=== PATIENT | female | born 1985 | race Caucasian/White ===

== ENCOUNTER 2018-11-11 10:53 | Emergency (ER) | payer OTHER ==
[2018-11-11] MEDS ORDERED: NS 1,000 ML IV ONE (12:30)
[2018-11-11] MEDS ORDERED: fentaNYL 100 MCG/2 ML INJ IVP ONE (12:31)
[2018-11-11] MEDS ORDERED: GADOBUTROL 10 ML VIAL IVP ONE (13:16)
[2018-11-11 13:21] LABS: PLATELET COUNT 258 10^3/uL (150-400)
--- NOTE | 2018-11-11 14:46 | EDPHY ---
H & P Stated Complaint: back pain - Personal History Current Tetanus/Diphtheria Vaccine: Yes Current Tetanus Diphtheria and Acellular Pertussis (TDAP): Yes - Medical/Surgical History Hx Asthma: No Hx Chronic Respiratory Disease: No Hx Diabetes: No Hx Cardiac Disease: No Hx Renal Disease: No Hx Cirrhosis: No Hx Alcoholism: No Hx HIV/AIDS: No Hx Splenectomy or Spleen Trauma: No - Social History Smoking Status: Never smoked Time Seen by Provider: 11/11/18 11:28 HPI/ROS: Chief complaint: Low back pain History of present illness: This is a 33-year-old female with a history of multiple medical problems who presents for low back pain. Patient reports she had epidural catheter in place for the last month with infusion of fentanyl for severe right knee pain. The catheter was removed yesterday. Since then she has had increasing pain to her low back at the site of the catheter insertion, diffuse numbness in the lower extremities bilaterally and generalized malaise. She did call her anesthesiologist, then called her primary care doctor. It was recommended she come to the hospital. She denies other associated signs or symptoms including no fevers, no nausea or vomiting, no urinary symptoms, no weakness or paralysis, no bowel or bladder dysfunction. Review of systems: A 10 point review of systems was obtained and other than described above was negative. (Modesto Mcfarland) - Physical Exam Exam: General Appearance: Alert, nontoxic. Eyes: Pupils equal and round no pallor or injection. ENT, Mouth: Mucous membranes moist. Respiratory: There are no retractions, lungs are clear to auscultation. Cardiovascular: Regular rate and rhythm. Gastrointestinal: Abdomen is soft and non tender, no masses, bowel sounds normal. Neurological: Alert and oriented x4. Strength and sensation intact and symmetrical. Patellar and Achilles reflexes 2+ bilaterally. Skin: Catheter insertion site noted in the upper lumbar spine region, no evidence of complications such as erythema or edema. Musculoskeletal: Neck is supple non tender. Extremities are symmetrical, full range of motion. Psychiatric: Patient is oriented X 3, there is no agitation. (Modesto Mcfarland) Constitutional: Initial Vital Signs Temperature (C) 37.1 C 11/11/18 11:00 Heart Rate 92 11/11/18 11:00 Respiratory Rate 16 11/11/18 11:00 Blood Pressure 113/71 11/11/18 11:00 O2 Sat (%) 93 11/11/18 11:00 O2 Delivery Mode Room Air Allergies/Adverse Reactions: No Known Allergies Allergy (Unverified 11/11/18 10:58) Home Medications: Medication Instructions Recorded Oxycodone 03/15/13 Cyclobenzaprine 11/11/18 Nucynta 11/11/18 fentaNYL [Duragesic 12 MCG Patch 12 mcg TD Q72H #1 patch 11/11/18 (*)] traMADol 11/11/18 Medical Decision Making - Diagnostics Imaging: Discussed imaging studies w/ call center supervisor Radiologist ED Course/Re-evaluation: Patient is discussed with my secondary supervising physician Dr. Lima Paulino. Patient presents to the emergency department for low back pain after having an epidural catheter removed yesterday that had been in place for a month with fentanyl being infused. She is nontoxic. Vital signs are stable. Blood studies, urinalysis and MR of the lumbar spine with and without contrast was unremarkable. My suspicion for serious pathology is low. I do question if this is related to fentanyl withdrawal. She will be discharged home. I will provide her with a single low-dose fentanyl patch to help with potential withdrawal. She has a primary care doctor she can follow up with next week. Home care is discussed. Strict return precautions are given. Patient voiced understanding and agreement with plan. (Modesto Mcfarland) The patient was evaluated and managed by the physician contract assistant. I discussed the plan of care while the patient was in the department and agree with obtaining an MRI scan of the lumbar spine. I have reviewed this chart and I agree with the findings and plan of care as documented, as indicated by my signature. I am the secondary supervising physician. (Lima Paulino) Differential Diagnosis: Included but not limited to muscle spasms, vertebral and intervertebral complications, spinal cord complications such as epidural bleeding or infection , fentanyl withdrawal (Modesto Mcfarland) - Data Points Laboratory Results: Laboratory Results 11/11/18 13:00 11/11/18 13:00 Medications Given: Discontinued Medications Fentanyl (Sublimaze) 100 mcg IVP EDNOW ONE Stop: 11/11/18 12:32 Last Admin: 11/11/18 12:46 Dose: 100 mcg Sodium Chloride (Ns) 1,000 mls @ 0 mls/hr IV EDNOW ONE; Wide Open PRN Reason: Protocol Stop: 11/11/18 12:31 Last Admin: 11/11/18 12:47 Dose: 1,000 mls Departure - Departure Disposition: Home, Routine, Self-Care Clinical Impression: Back pain Qualifiers: Back pain location: low back pain Chronicity: acute Back pain laterality: midline Sciatica presence: with sciatica Sciatica laterality: bilateral sciatica Qualified Code(s): M54.42 - Lumbago with sciatica, left side Condition: Good Instructions: Fentanyl (Absorbed through the skin), Back Pain (ED) Additional Instructions: Follow-up with your doctors next week for continued evaluation and care Continue your home medications as prescribed. Do not take extra doses. In addition you have been prescribed a fentanyl patch to use until you can see your doctor. If symptoms worsen or new symptoms develop return to the emergency room Referrals: NONE *PRIMARY CARE P,. [Primary Care Provider] - As per Instructions Prescriptions: fentaNYL [Duragesic 12 MCG Patch (*)] 12 mcg TD Q72H #1 patch
[2018-11-11 14:48] VITALS: BP 112/78
== END 2018-11-11 15:22 | disposition home or self-care (01) ==
DX: M54.42 Lumbago with sciatica, left side (principal); E86.9 Volume depletion, unspecified
CPT/HCPCS: 96374; A9585; J3010